=== PATIENT | female | born 1975 | race African-American/Black ===

== ENCOUNTER 2016-11-19 13:48 | Emergency (ER) | payer MEDICAID, OTHER ==
[~2016-11-19] VITALS: Ht 160 cm; Wt 90.0 kg
[~2016-11-19 13:48] MED LIST: DENIES MEDS
[2016-11-19 13:51] VITALS: Ht 160 cm; Wt 90.0 kg
[2016-11-19 16:12] LABS: BASOPHILS % 0.4 % (0.0-2.0); EOSINOPHILS # 0.1 10^3/ul (0.0-0.5); EOSINOPHILS % 1.3 % (0.0-7.0); HEMATOCRIT 38.9 % (37.0-47.0); HEMOGLOBIN 12.2 g/dl (12.0-16.0); LYMPHOCYTES # 2.3 10^3/ul (0.8-2.9); LYMPHOCYTES % 24.4 % (15.0-51.0); MEAN CORPUSCULAR HEMOGLOBIN 31.5 pg (29.0-33.0); MEAN CORPUSCULAR HGB CONC 31.4 g/dl (32.0-37.0); MEAN CORPUSCULAR VOLUME 100.5 fl (82.0-101.0); MEAN PLATELET VOLUME 9.9 fl (7.4-10.4); MONOCYTE # 0.6 10^3/ul (0.3-0.9); NEUTROPHIL # 6.2 10^3/ul (1.6-7.5); NEUTROPHILS % 67.6 % (39.0-77.0); PLATELET COUNT 380 10^3/UL (140-415); RED BLOOD COUNT 3.87 10^6/ul (4.20-5.40); WHITE BLOOD COUNT 9.2 10^3/ul (4.8-10.8)
[2016-11-19] MEDS ORDERED: ACETAMINOPHEN 500 MG TAB PO STA (16:25)
[2016-11-19 16:27] LABS: ADD UMIC YES; UR ASCORBIC ACID 40 mg/dL (NEGATIVE); UR BACTERIA MODERATE /HPF (NONE SEEN); UR BILIRUBIN (Dip) NEGATIVE (NEGATIVE); UR BLOOD (Dip) NEGATIVE (NEGATIVE); UR CLARITY CLEAR (CLEAR); UR COLOR YELLOW (YELLOW); UR GLUCOSE (Dip) NEGATIVE (NEGATIVE); UR KETONES (Dip) NEGATIVE (NEGATIVE); UR LEUKOCYTE ESTERASE (Dip) NEGATIVE Leu/ul (NEGATIVE); UR NITRITE (Dip) POSITIVE (NEGATIVE); UR RBC 2 /HPF (0-5); UR SPECIFIC GRAVITY (Dip) 1.006 (1.003-1.030); UR TOTAL PROTEIN (Dip) NEGATIVE (NEGATIVE); UR UROBILINOGEN (Dip) NEGATIVE (NEGATIVE)
--- NOTE | 2016-11-19 16:35 | RADRPT ---
PROCEDURE: XR Forearm. CLINICAL INDICATION: Forearm pain . Status post fall. TECHNIQUE: AP and lateral views of the right forearm were obtained. COMPARISON: No prior studies are available for comparison. FINDINGS: There is an impacted mildly comminuted fracture of the right distal radial metaphysis.. The ulna myah ears intact. There is soft tissue swelling around the wrist. The elbow joint is aligned. No radiopaq ue foreign bodies are seen. IMPRESSION: 1. Impacted and mildly comminuted fracture of the right distal radial metaphysis. RPTAT: GG .Tomasz Arreaga MD, MD Date Time Electronically viewed and signed by .Tomasz Arreaga MD, MD on 11/19/2016 16:35 .L/
--- NOTE | 2016-11-19 16:37 | RADRPT ---
PROCEDURE: XR Hand. CLINICAL INDICATION: Pain TECHNIQUE: Three views of the right hand were obtained. COMPARISON: No prior studies are available for comparison. FINDINGS: there is an impacted and mildly comminuted fracture of the right distal radial metaphysis with intra -articular extension to the radiocarpal joint. A nondisplaced fracture of the ulnar styloid is seen. Carpal bones are aligned. Remainder of the bones of the hand are intact. . The joint spaces are pre served. Bone mineralization is normal. There is soft tissue swelling of the wrist. IMPRESSION: 1. Impacted comminuted intra-articular fracture of the right distal radius. 2. Nondisplaced fracture of the ulnar styloid. RPTAT: GG .Tomasz Arreaga MD, Date Time Electronically viewed and signed by .Tomasz Arreaga MD, MD on 11/19/2016 16:37 .L/
--- NOTE | 2016-11-19 16:38 | RADRPT ---
PROCEDURE: XR Abdomen. CLINICAL INDICATION: Abdominal pain. Constipation. TECHNIQUE: AP abdomen x-ray. COMPARISON: None. FINDINGS: There is moderate retained feces throughout the colon consistent with constipation. There is no evid ence of small bowel dilatation, obstruction, or free air. There are no abnormal calcifications ident ified.. The osseous structures are unremarkable. IMPRESSION: Moderate change feces in the colon consistent with constipation. RPTAT: JJ .Tomasz Arreaga MD, MD Date Time Electronically viewed and signed by .Tomasz Arreaga MD, on 11/19/2016 16:37 .L/
[2016-11-19 16:41] LABS: ALBUMIN 4.3 g/dl (3.3-4.9); ALBUMIN/GLOBULIN RATIO 1.13; BILIRUBIN,INDIRECT 0.3 mg/dl (0-1.1); BILIRUBIN,TOTAL 0.3 mg/dl (0.2-1.3); CALCIUM 9.3 mg/dl (8.4-10.2); CREATININE 0.68 mg/dl (0.44-1.00); TOTAL PROTEIN 8.1 g/dl (6.1-8.1)
[2016-11-19] MEDS ORDERED: IBUP-1542 PO (16:49)
[2016-11-19] MEDS ORDERED: POLY17PO6 PO (16:50)
--- NOTE | 2016-11-19 16:58 | ERD ---
ER Documentation Chief Complaint Date/Time DATE: 11/19/16 TIME: 16:52 Chief Complaint ap, eating normally, also reported right arm pain after a fall HPI Patient is a 41-year-old female with a past medical history of constipation who presents emergency department for concerns of abdominal pain and right arm pain after a ground-level fall. Patient states she has had abdominal pain for the last 2 days. Patient denies any fevers, chills, nausea, vomiting, dysuria, frequency, hematuria or flank pain. Patient states her last vomit was over 3 days ago. Patient does report hard stools, pebble-like. Patient denies any rectal bleeding. Patient states she has had a history of constipation in the past which she sometimes takes Dulcolax for. Patient reports minimal H2O intake. Also reports right arm pain. She describes the pain to be in her mid arm. Patient that she tripped 2 weeks ago [place] the [place]. Patient reports taking Aleve with no alleviation of symptoms. Patient is right-hand dominant. Patient is able to bend her elbow and shoulder without any difficulty. Patient denies any previous fractures or injuries to the affected extremity. ROS All systems reviewed and are negative except as per history of present illness. Medications Home Meds Active Scripts Nitrofurantoin Monohyd Macrocr* (Macrobid*) 100 Mg Capsr, 100 MG PO BID for 5 Days, CAP Prov:OSKAR HERR PA-C 11/19/16 Polyethylene Glycol* (Miralax*) 17 Gm Powd.pack, 17 GM PO DAILY, #7 Prov:OSKAR HERR PA-C 11/19/16 Ibuprofen* (Motrin*) 600 Mg Tab, 600 MG PO Q6, #30 TAB Prov:OSKAR HERR PA-C 11/19/16 Reported Medications [Denies Meds] No Conflict Check 01/29/10 Allergies Allergies: Coded Allergies: Penicillins (Verified Allergy, Unknown, 01/29/10) PMhx/Soc History of Surgery: Yes (3X C SECTION) Anesthesia Reaction: No Hx Neurological Disorder: No Hx Respiratory Disorders: No Hx Cardiac Disorders: No Hx Psychiatric Problems: No Hx Miscellaneous Medical Probl: No Hx Alcohol Use: No Hx Substance Use: No Hx Tobacco Use: No Smoking Status: Never smoker Physical Exam Vitals Vital Signs Date Time Temp Pulse Resp B/P Pulse Ox O2 Delivery O2 Flow Rate FiO2 11/19/16 13:51 98.1 90 18 142/78 99 Physical Exam GENERAL: Well-developed, well-nourished female. Appears in no acute distress. Speaking in full sentences. HEAD: Normocephalic, atraumatic. EYES: Pupils are equally reactive bilaterally. EOMs grossly intact. No conjunctival erythema. ENT: Moist mucous membranes. No uvula deviation. No kissing tonsils. NECK: Supple. No meningismus. Normal range of motion of the neck. LUNG: Clear to auscultation bilaterally. No rhonchi, wheezing, rales or coarse breath sounds. HEART: Regular rate and rhythm. No murmurs, rubs or gallops. ABDOMEN: No scars, ecchymosis or rashes noted. Soft, and nondistended. Minimal tenderness in all 4 quadrants. Positive bowel sounds in all four quadrants. No rebound tenderness, no guarding. (-) McBurney's point tenderness. No CVA tenderness. BACK: No midline tenderness. EXTREMITIES: Equal pulses bilaterally. No peripheral clubbing, cyanosis or edema. No unilateral leg swelling. NEUROLOGIC: Alert and oriented. Moving all four extremities without any difficulty. Normal speech. Steady gait. SKIN: Normal color. Warm and dry. No rashes or lesions. RIGHT UE: Oh erythema or ecchymosis noted. Swelling noted to the patient's mid forearm. Skin intact. No bursal swelling. Full ROM shoulder and elbow. Patient reports pain with wrist flexion. Tender to palpation of the mid forearm/distal forearm. Sensation intact to light touch. Neurovascularly intact. (Able to give thumbs up, make an ok sign, cross digits 2 and 3, thumb to pinky opposition. 2+ RP.) No snuffbox tenderness. Result Diagram: 11/19/16 1550 11/19/16 1550 Results 24 hrs Laboratory Tests Test 11/19/16 15:45 11/19/16 15:50 Urine Color YELLOW Urine Clarity CLEAR Urine pH 7.0 Urine Specific Citra 1.006 Urine Ketones NEGATIVEmg/dL Urine Nitrite POSITIVEmg/dL Urine Bilirubin NEGATIVEmg/dL Urine Urobilinogen NEGATIVEmg/dL Urine Leukocyte Esterase NEGATIVELeu/ul Urine Microscopic RBC 2/HPF Urine Microscopic WBC 1/HPF Urine Bacteria MODERATE/HPF Urine Hemoglobin NEGATIVEmg/dL Urine Glucose NEGATIVEmg/dL Urine Total Protein NEGATIVEmg/dl White Blood Count 9.210^3/ul Red Blood Count 3.8710^6/ul Hemoglobin 12.2g/dl Hematocrit 38.9% Mean Corpuscular Volume 100.5fl Mean Corpuscular Hemoglobin 31.5pg Mean Corpuscular Hemoglobin Concent 31.4g/dl Red Cell Distribution Width 13.0% Platelet Count 93350^3/UL Mean Platelet Volume 9.9fl Neutrophils % 67.6% Lymphocytes % 24.4% Monocytes % 6.0% Eosinophils % 1.3% Basophils % 0.4% Nucleated Red Blood Cells % 0.0/100WBC Neutrophils # 6.210^3/ul Lymphocytes # 2.310^3/ul Monocytes # 0.610^3/ul Eosinophils # 0.110^3/ul Basophils # 0.010^3/ul Nucleated Red Blood Cells # 0.010^3/ul Sodium Level 140mmol/L Potassium Level 4.0mmol/L Chloride Level 106mmol/L Carbon Dioxide Level 25mmol/L Anion Gap 13 Blood Urea Nitrogen 9mg/dl Creatinine 0.68mg/dl Glucose Level 133mg/dl Calcium Level 9.3mg/dl Total Bilirubin 0.3mg/dl Direct Bilirubin 0.00mg/dl Indirect Bilirubin 0.3mg/dl Aspartate Amino Transf (AST/SGOT) 24IU/L Alanine Aminotransferase (ALT/SGPT) 31IU/L Alkaline Phosphatase 81IU/L Total Protein 8.1g/dl Albumin 4.3g/dl Globulin 3.80g/dl Albumin/Globulin Ratio 1.13 Lipase 93U/L Current Medications Medications (Trade) Dose Ordered Sig/Nishant Route PRN Reason Start Time Stop Time Status Last Admin Dose Admin Acetaminophen (Tylenol Tab) 500 mg ONCE STAT PO 11/19/16 16:25 11/19/16 16:26 DC Procedures/MDM ED COURSE: The patient was stable throughout ED course. I kept the patient and/or family informed of laboratory and diagnostic imaging results throughout the ED course. DIAGNOSTIC IMAGING: Read by radiologist. Patient: JANA CASTAÑEDA : 1975 Age: 41 Sex: F MR #: [id number] DOS: 11/19/16 1534 Ordering MD: OSKAR HERR PA-C Location: [facility] Room/Bed: PROCEDURE: XR Abdomen. CLINICAL INDICATION: Abdominal pain. Constipation. TECHNIQUE: AP abdomen x-ray. COMPARISON: None. FINDINGS: There is moderate retained feces throughout the colon consistent with constipation. There is no evidence of small bowel dilatation, obstruction, or free air. There are no abnormal calcifications identified.. The osseous structures are unremarkable. IMPRESSION: Moderate change feces in the colon consistent with constipation. RPTAT: JJ .Tomasz Arreaga MD, Date Time Electronically viewed and signed by .Tomasz Arreaga MD, MD on 11/19/2016 16:37 .L/ CC: OSKAR HERR PA-C Patient: JANA CASTAÑEDA : 1975 Age: 41 Sex: F MR #: [id number] DOS: 11/19/16 1534 Ordering MD: OSKAR HERR PA-C Location: [facility] Room/Bed: PROCEDURE: XR Forearm. CLINICAL INDICATION: Forearm pain . Status post fall. TECHNIQUE: AP and lateral views of the right forearm were obtained. COMPARISON: No prior studies are available for comparison. FINDINGS: There is an impacted mildly comminuted fracture of the right distal radial metaphysis.. The ulna appears intact. There is soft tissue swelling around the wrist. The elbow joint is aligned. No radiopaque foreign bodies are seen. IMPRESSION: 1. Impacted and mildly comminuted fracture of the right distal radial metaphysis. RPTAT: GG .Tomasz Arreaga MD, MD Date Time Electronically viewed and signed by .Tomasz Arreaga MD, MD on 11/19/2016 16:35 .L/ CC: OSKAR HERR PA-C Patient: JANA CASTAÑEDA : 1975 Age: 41 Sex: F [id number] DOS: 11/19/16 1534 Ordering MD: OSKAR HERR PA-C Location: [facility] Room/Bed: PROCEDURE: XR Hand. CLINICAL INDICATION: Pain TECHNIQUE: Three views of the right hand were obtained. COMPARISON: No prior studies are available for comparison. FINDINGS: there is an impacted and mildly comminuted fracture of the right distal radial metaphysis with intra-articular extension to the radiocarpal joint. A nondisplaced fracture of the ulnar styloid is seen. Carpal bones are aligned. Remainder of the bones of the hand are intact. . The joint spaces are preserved. Bone mineralization is normal. There is soft tissue swelling of the wrist. IMPRESSION: 1. Impacted comminuted intra-articular fracture of the right distal radius. 2. Nondisplaced fracture of the ulnar styloid. RPTAT: GG .Tomasz Arreaga MD, MD Date Time Electronically viewed and signed by .Tomasz Arreaga MD, MD on 11/19/2016 16:37 .L/ CC: OSKAR HERR PA-C PROCEDURES: SPLINT APPLICATION: The patient was verbally consented at bedside prior to splint application. Patient was explained the risks, benefits and alternatives to this procedure. The patient was neurovascularly intact prior to and status post application of the splint. The patient tolerated the procedure well with no complications. Splint type: sugar tong splint and sling Extremity: right arm Indication: Impacted comminuted intra-articular fracture of the right distal radius. Nondisplaced fracture of the ulnar styloid. MEDICATIONS GIVEN: Tylenol Patient tolerated medication well with no adverse reactions. Patient reported improvement in pain. MEDICAL DECISION MAKING: Patient is a 41-year-old female who presents emergency department for diffuse abdominal pain and right arm pain s/p trip and fall injury. Vital signs were reviewed. Patient is afebrile. Abdominal exam revealed diffuse tenderness in all 4 quadrants. CBC showed no evidence of systemic infection or severe anemia. CMP showed no evidence of electrolyte abnormalities, severe acidosis, alkalosis, renal failure , or liver disease. Lipase showed no evidence of acute pancreatitis. UA showed + nitrites however no WBCs. Patient's urine was sent for culture. Urine test was negative. KUB showed Moderate change feces in the colon consistent with constipation. Xray imaging of R forearm showed Impacted comminuted intra-articular fracture of the right distal radius. Nondisplaced fracture of the ulnar styloid. Patient was placed in a sugar tong splint and sling. Patient was advised to follow-up with an employee development specialist. Patient advised to keep splint on until seen by employee development specialist. At this time, patient's presentation is most consistent with constipation, UTI and right distal radius fracture and ulnar styloid fracture. Low suspicion for DKA, bowel perforation, bowel obstruction, cholecystitis, choledocholithiasis, pancreatitis GERD, diverticulitis, pyelonephritis, nephrolithiasis, appendicitis , constipation, , ovarian torsion or tubo-ovarian abscess. PRESCRIPTIONS: Ibuprofen, Macrobid, Miralax DISCHARGE: At this time, patient is stable for discharge and outpatient management. Patient was given a copy of all blood work and imaging studies obtained today. Was given referral information for an employee development specialist. Patient when she should see an employee development specialist as soon as possible for further management of her fracture. I have instructed the patient to follow-up with his/her primary care physician in 1-2 days. I have instructed the patient to promptly return to the ER at any time for any new or worsening symptoms including increased pain, nausea, vomiting, diarrhea, fever, weakness or LOC. The patient and/or family expressed understanding of and agreement with this plan. All questions were answered. Home care instructions were provided. Disclaimer: Inadvertent spelling and grammatical errors are likely due to EHR/ dictation software use and do not reflect on the overall quality of patient care. Also, please note that the electronic time recorded on this note does not necessarily reflect the actual time of the patient encounter. Departure Diagnosis: Primary Impression: Distal radius fracture, right Encounter type: initial encounter Fracture type: closed Fracture morphology : unspecified fracture morphology Qualified Code: S52.501A - Closed fracture of distal end of right radius, unspecified fracture morphology, initial encounter Additional Impressions: Fracture of ulnar styloid Encounter type: initial encounter Fracture type: closed Fracture alignment : nondisplaced Laterality: right Qualified Code: S52.614A - Closed nondisplaced fracture of styloid process of right ulna, initial encounter Constipation Constipation type: unspecified constipation type Qualified Code: K59.00 - Constipation, unspecified constipation type UTI (urinary tract infection) Urinary tract infection type: acute cystitis Hematuria presence: without hematuria Qualified Code: N30.00 - Acute cystitis without hematuria Condition: Stable Patient Instructions: Constipation (Adult), Radius And Ulna Fx, No Reduction Required Referrals: [facility] YOU HAVE RECEIVED A MEDICAL SCREENING EXAM AND THE RESULTS INDICATE THAT YOU DO NOT HAVE A CONDITION THAT REQUIRES URGENT TREATMENT IN THE EMERGENCY DEPARTMENT. FURTHER EVALUATION AND TREATMENT OF YOUR CONDITION CAN WAIT UNTIL YOU ARE SEEN IN YOUR DOCTORS OFFICE WITHIN THE NEXT 1-2 DAYS. IT IS YOUR RESPONSIBILITY TO MAKE AN APPOINTMENT FOR FOLOW-UP CARE. IF YOU HAVE A PRIMARY DOCTOR --you should call your primary doctor and schedule an appointment IF YOU DO NOT HAVE A PRIMARY DOCTOR YOU CAN CALL OUR PHYSICIAN REFERRAL HOTLINE AT IF YOU CAN NOT AFFORD TO SEE A PHYSICIAN YOU CAN CHOSE FROM THE FOLLOWING [facility] [address] [facility] [address]. [facility] [address] [facility]. [facility] [address] [facility] [facility] [address] [facility] [facility] [address] [facility] [facility]. [address] [facility]. [facility] YOU HAVE RECEIVED A MEDICAL SCREENING EXAM AND THE RESULTS INDICATE THAT YOU DO NOT HAVE A CONDITION THAT REQUIRES URGENT TREATMENT IN THE EMERGENCY DEPARTMENT. FURTHER EVALUATION AND TREATMENT OF YOUR CONDITION CAN WAIT UNTIL YOU ARE SEEN IN YOUR DOCTORS OFFICE WITHIN THE NEXT 1-2 DAYS. IT IS YOUR RESPONSIBILITY TO MAKE AN APPOINTMENT FOR FOLOW-UP CARE. IF YOU HAVE A PRIMARY DOCTOR --you should call your primary doctor and schedule and appointment IF YOU DO NOT HAVE A PRIMARY DOCTOR YOU CAN CALL OUR PHYSICIAN REFERRAL HOTLINE AT . IF YOU CAN NOT AFFORD TO SEE A PHYSICIAN YOU CAN CHOSE FROM THE FOLLOWING [facility] INSTITUTIONS: [facility] [address] [place] [address] [facility] [address] [place] [address] [facility] [address] [place] [address] [facility] Hours: Mon-Fri 9:00 AM - 5:00 PM Additional Instructions: Patient will need to follow-up with an employee development specialist for further management of her fracture. She does remain in splint until seen by an employee development specialist. MiraLAX for your constipation. Increase water intake and fiber intake. Call your primary care doctor TOMORROW for an appointment during the next 1-2 days.See the doctor sooner or return here if your condition worsens before your appointment time. OSKAR HERR PA-C Nov 19, 2016 16:58
[2016-11-19] MEDS ORDERED: NITR-58 PO (17:00)
[2016-11-19 17:39] VITALS: BP 141/78; PULSE 70; RESP 18; TEMP 98.2
== END 2016-11-19 17:41 | disposition home or self-care (01) ==
LOC: FTE 13:48
DX: S52.501A Unspecified fracture of the lower end of right radius, initial encounter for closed fracture (principal); S52.614A Nondisplaced fracture of right ulna styloid process, initial encounter for closed fracture; K59.00 Constipation, unspecified; N30.00 Acute cystitis without hematuria; W18.39XA Other fall on same level, initial encounter; Y92.9 Unspecified place or not applicable
CPT/HCPCS: 29125; 73090; 73130; 74000; 80053; 81001; 83690; 85025; 87086; Z7502; Z7610